=== PATIENT | female | born 1970 | race African-American/Black ===

== ENCOUNTER 2017-07-22 12:55 | Outpatient (CLI) | payer OTHER ==
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
== END 2017-07-22 12:56 | disposition home or self-care (01) ==
LOC: SCSCT 12:55
PROVIDERS: ATTEND Family Medicine
DX: M54.12 Radiculopathy, cervical region (principal)
CPT/HCPCS: 72125